=== PATIENT | male | born 1960 | race African-American/Black ===

== ENCOUNTER 2022-04-09 11:14 | Observation (INO) ==
[2022-04-09 14:19] LABS: Eosinophils # 0.3 10*3/uL (0.0-0.87); Eosinophils % 19.5 % (0.00-10.9); Hematocrit 25.8 VOL% (42.0-52.0); Immature Granulocytes % 0.6 %; Immature Granulocytes Absolute 0.01 #; Lymphocytes # 0.9 10*3/uL (1.4-4.0); Lymphocytes % 55.3 % (21.2-54.2); Mean Corpuscular HGB Conc 34.9 GM/DL (32-36); Mean Corpuscular Volume 94.2 FL (87-102); Mean Platelet Volume 10.7 FL (9.6-12.0); Monocytes % 2.5 % (1.7-12.7); Neutrophils % 22.1 % (38.7-73.9); Platelet Count 60 T/CUMM (130-400); Red Blood Count 2.74 MC/CUMM (3.8-5.5); Red Cell Distribution Width 17.3 % (9.3-17.3); White Blood Count 1.59 T/CUMM (4-12)
[2022-04-09 14:39] LABS: Albumin 4.4 G/DL (3.4-5.0); Calcium 8.8 MG/DL (8.5-10.1); Osmolality,Calculated 281.4 MOS/KG (273-304)
[2022-04-09 14:50] LABS: Eosinophils 13 % (0-10); Lymphocytes 59 % (20-55); Nucleated Red Blood Cells 1 /100 WBC (0-5); Total Cells Counted 100
[2022-04-09 14:51] LABS: Anisocytosis 1+; Elliptocytes 1+; Hypochromia 1+
[2022-04-09 14:52] LABS: Platelet Estimate Decreased; Schistocytes Few
[2022-04-09 16:36] LABS: HIV Antigen/Antibody Result Nonreactive (Nonreactive)
[2022-04-09] MEDS ORDERED: ONDANSETRON 4 MG/2 ML VIAL IV PRN (16:55)
[2022-04-09 17:36] LABS: Urine Appearance Clear (Clear); Urine Color Yellow (Yellow); Urine pH 5.5 (4.5-8.0)
[2022-04-09 17:37] LABS: Bilirubin,Urine Small mg/dL (Negative); Blood, Urine Trace mg/dL (Negative); Glucose,Urine (UA) Negative (Negative); Ketones,Urine Trace mg/dL (Negative); Nitrite,Urine Negative (Negative); Protein,Urine 100 mg/dL (Negative); Urine Specific Gravity >= 1.030 (1.001-1.035)
[2022-04-09 17:38] LABS: Mucus,Urine Many /LPF (Occasional); RBC,Urine 8 /HPF (0-4)
[2022-04-09 17:52] LABS: Folate > 24.00 NG/ML (5.38-24.0); Vitamin B12 134 PG/ML (211-911)
[2022-04-09 17:53] LABS: Albumin 4.3 G/DL (3.4-5.0); Bilirubin,Direct 0.26 MG/DL (0.0-0.20); Bilirubin,Indirect 0.7 MG/DL (0.0-1.0); Total Protein 7.3 G/DL (6.4-8.2)
[2022-04-09 17:56] LABS: Barbiturates Screen,Urine Negative (Negative); Benzodiazepines Screen,Urine Negative (Negative); Cannabinoid Screen,Urine Negative (Negative); Opiate Screen,Urine Negative (Negative); Phencyclidine Screen,Urine Negative (Negative)
[2022-04-09] MEDS: DEXTROSE 5% NACL 0.9% 1,000 ML IV SCH (18:00)
[2022-04-09 18:05] LABS: % Iron Saturation 40.6 % (18-50); Ferritin 698.6 ng/mL (26-388)
[2022-04-09 18:20] LABS: INR 1.1; PT Patient Result 12.2 SECS (10.1-12.1)
[2022-04-09] MEDS: DOCUSATE SODIUM 100 MG CAPSULE PO SCH (20:50)
[2022-04-09] MEDS: LACTULOSE 20 GM/30 ML UDCUP PO SCH ×2 (20:50)
[2022-04-10] MEDS: LACTULOSE 20 GM/30 ML UDCUP PO SCH ×6 (01:25→22:02)
[2022-04-10] MEDS: DEXTROSE 5% NACL 0.9% 1,000 ML IV SCH ×4 (03:35→22:21)
[2022-04-10 05:18] LABS: Eosinophils # 0.3 10*3/uL (0.0-0.87); Eosinophils % 16.6 % (0.00-10.9); Hematocrit 23.1 VOL% (42.0-52.0); Immature Granulocytes % 0.7 %; Immature Granulocytes Absolute 0.01 #; Lymphocytes % 66.2 % (21.2-54.2); Mean Corpuscular HGB Conc 34.6 GM/DL (32-36); Mean Corpuscular Volume 95.5 FL (87-102); Mean Platelet Volume 12.7 FL (9.6-12.0); Monocytes # 0.1 10*3/uL (0.11-0.8); Monocytes % 3.3 % (1.7-12.7); NRBC # 0.02 10*3/uL; Neutrophils % 13.2 % (38.7-73.9); Platelet Count 53 T/CUMM (130-400); Red Blood Count 2.42 MC/CUMM (3.8-5.5); Red Cell Distribution Width 17.3 % (9.3-17.3); White Blood Count 1.51 T/CUMM (4-12)
[2022-04-10 05:45] LABS: Anisocytosis 1+; Eosinophils 23 % (0-10); Lymphocytes 62 % (20-55); Total Cells Counted 100
[2022-04-10 05:46] LABS: Ovalocytes Few
[2022-04-10 05:53] LABS: Risk Ratio 5.78; Thyroid Stimulating Hormone 0.934 uIU/ml (0.358-3.74); VLDL Cholesterol 51.4 MG/DL
[2022-04-10 06:08] LABS: Albumin 3.6 G/DL (3.4-5.0); Bilirubin,Total 0.7 MG/DL (0.20-1.00); Osmolality,Calculated 288.8 MOS/KG (273-304); Potassium 3.8 MMOL/L (3.5-5.1); Total Protein 5.8 G/DL (6.4-8.2)
[2022-04-10] MEDS: PANTOPRAZOLE 40 MG TABLET PO SCH (09:09)
[2022-04-10] MEDS: DOCUSATE SODIUM 100 MG CAPSULE PO SCH ×2 (09:09→20:57)
[2022-04-11] MEDS: LACTULOSE 20 GM/30 ML UDCUP PO SCH ×5 (02:12→17:29)
[2022-04-11 05:20] LABS: Eosinophils # 0.2 10*3/uL (0.0-0.87); Eosinophils % 14.2 % (0.00-10.9); Hematocrit 21.4 VOL% (42.0-52.0); Hemoglobin 7.5 GM/DL (14.0-18.0); Immature Granulocytes % 0.7 %; Immature Granulocytes Absolute 0.01 #; Lymphocytes # 0.9 10*3/uL (1.4-4.0); Lymphocytes % 63.8 % (21.2-54.2); Mean Corpuscular Volume 95.5 FL (87-102); Mean Platelet Volume 10.6 FL (9.6-12.0); Monocytes % 2.8 % (1.7-12.7); NRBC # 0.02 10*3/uL; Neutrophils % 18.5 % (38.7-73.9); Platelet Count 47 T/CUMM (130-400); Red Blood Count 2.24 MC/CUMM (3.8-5.5); Red Cell Distribution Width 17.1 % (9.3-17.3); White Blood Count 1.41 T/CUMM (4-12)
[2022-04-11 05:42] LABS: Albumin 3.3 G/DL (3.4-5.0); Bilirubin,Total 0.6 MG/DL (0.20-1.00); Calcium 8.2 MG/DL (8.5-10.1); Osmolality,Calculated 284.8 MOS/KG (273-304); Potassium 3.9 MMOL/L (3.5-5.1); Total Protein 5.7 G/DL (6.4-8.2)
[2022-04-11] MEDS: DEXTROSE 5% NACL 0.9% 1,000 ML IV SCH ×2 (05:43→17:29)
[2022-04-11 05:47] LABS: Anisocytosis 1+; Eosinophils 14 % (0-10); Lymphocytes 63 % (20-55); Ovalocytes Few; Total Cells Counted 100
[2022-04-11 05:48] LABS: Hypochromia Slight
[2022-04-11 05:49] LABS: Platelet Estimate Decreased
[2022-04-11] MEDS: DOCUSATE SODIUM 100 MG CAPSULE PO SCH (08:16)
[2022-04-11] MEDS: PANTOPRAZOLE 40 MG TABLET PO SCH (08:16)
[2022-04-11] MEDS ORDERED: CYANOCOBALAMIN 1000 MCG/1 ML VIAL SUBCUT SCH (09:00)
[2022-04-11] MEDS ORDERED: SODIUM CHLORIDE 0.9% 1,000 ML IV PRN (09:13)
[2022-04-11 09:35] LABS: Hepatitis B Core IgM Quant 0.06 Index; Hepatitis B Surface Ag Quant < 0.10 Index; Hepatitis B Surface Ag Result Non-Reactive (NonReactive); Hepatitis C Virus Ab Quant 0.02 Index; Hepatitis C Virus Ab Result Non-Reactive (NonReactive)
[2022-04-11 18:24] LABS: CMV DNA Detect/Quant, P Undetected IU/mL (Undetected)
[2022-04-11 20:11] VITALS: BP 140/82
[2022-04-12 15:01] LABS: Varicella IgG Index 4.4
== END 2022-04-11 19:50 | disposition home or self-care (01) ==
LOC: N.EDINP 11:14 → N.ED 11:14 → SUATTDRO 16:49 → N.TELES 19:19
PROVIDERS: ADMIT Family Medicine; ATTEND Internal Medicine